=== PATIENT | female | born 1945 | race Caucasian/White ===

== ENCOUNTER → 2019-12-05 | Outpatient (CLI) | payer BC, SELFPAY ==
[2019-12-07 09:08] LABS: SJOGREN'S Anti-SS-A test < 0.2 AI (0.0-0.9); SJOGREN'S Anti-SS-B test < 0.2 AI (0.0-0.9)
[2019-12-07 10:54] LABS: Anti-Nuclear Antibody Test Negative (.)
== END | disposition home or self-care (01) ==
LOC: LAB 09:36
PROVIDERS: Referring Provider Otolaryngology; Visit Provider Otolaryngology
DX: K11.7 Disturbances of salivary secretion (principal)
CPT/HCPCS: 36415; 86038; 86235; 86431

== ENCOUNTER → 2020-02-27 | Outpatient (CLI) | payer BC, SELFPAY | END | disposition home or self-care (01) | LOC: LABSPEC 15:44 | PROVIDERS: Visit Provider Otolaryngology | DX: J02.9 Acute pharyngitis, unspecified (principal) | CPT/HCPCS: 87070; 87077; 87186 ==

== ENCOUNTER → 2020-04-18 08:35 | Outpatient (CLI) | payer BC, SELFPAY ==
--- NOTE | 2020-04-18 08:42 | EKG12_ITS ---
Test Reason : PRE OP Blood Pressure : / mmHG Vent. Rate : 067 BPM Atrial Rate : 067 BPM P-R Int : 144 ms QRS Dur : 068 ms QT Int : 370 ms P-R-T Axes : 057 069 067 degrees QTc Int : 390 ms Normal sinus rhythm Normal ECG Confirmed by ORLANDO ALDRICH, HUNTER ([id number]), editor greeting card MICHAEL ARMAS ([id number]) on 04/24/2020 8:25:39 AM Referred By: Poli Curran Confirmed By:HUNTER PERRY MD
[2020-04-18 10:13] LABS: Hematocrit 42.7 % (37-47); Hemoglobin 13.5 g/dL (12.0-15.0); Mean Corp Hgb Conc 31.6 g/dL (32-36); Mean Corpuscular Hgb 28.2 pg (27.0-32.0); Mean Corpuscular Volume 89.3 fL (81-99); Mean Platelet Vol. 11.8 fl (6.2-12.0); Platelet Count 229 K/mm3 (150-450); RBC Distribution Width CV 13.5 % (11.6-14.6); RBC Distribution Width SD 43.9 fl (35.1-43.9); Red Blood Count 4.78 M/mm3 (4.2-5.4); White Blood Count 5.2 K/mm3 (4.4-11.0)
[2020-04-18 11:01] LABS: Anion Gap 3 (5-15); BUN 16 mg/dL (7-18); BUN/Creat Ratio 14.5 RATIO (10-20); Calcium,Total 10.4 mg/dL (8.5-10.1); Chloride 109 mmol/L (98-107); EST Glomerular Filtration Rate 52 mL/min (>60); Est Glom Filt Rate - Afr Amer 63 mL/min (>60); Glucose 83 mg/dL (74-106); Potassium 4.2 mmol/L (3.5-5.1); Sodium Level 143 mmol/L (136-145)
== END ==
PROVIDERS: Referring Provider Otolaryngology; Visit Provider Otolaryngology
DX: Z01.818 Encounter for other preprocedural examination (principal)
CPT/HCPCS: 36415; 80048; 85027; 93005

== ENCOUNTER → 2020-04-24 | Outpatient (CLI) | payer BC, SELFPAY | END | disposition home or self-care (01) | LOC: LABSPEC 10:48 | PROVIDERS: Referring Provider Otolaryngology; Visit Provider Otolaryngology | DX: Z11.59 Encounter for screening for other viral diseases (principal) | CPT/HCPCS: 87635; C9803; U0003 ==

== ENCOUNTER → 2020-04-29 | Outpatient (CLI) | payer BC, SELFPAY ==
--- NOTE | 2020-04-29 10:05 | TISS_PTH ---
PATIENT: HERB RAMIREZ LOC: [facility] U#:[id number] AGE/SX: 75/F ROOM: RE04/29/[address]: Dr. Poli Curran MD : 1945 BED: DIS: 04/29/2020 SPEC #: [id number] RECD: 04/29/20 10:50 STATUS: NEVA REJamil #: [id number] KIET: 04/29/20 10:[address]: Poli Curran DEPT: SURGICAL PATHOLOGY RECD BY: Lady Tse ENTERED: 04/29/20 11:55 SP TYPE: Tissue Bx CARLOS ENRIQUE DR: Dr. Ashley Gerardo, DO [facility] Tissues: A - Uvula palatina B - Salivary gland, NOS Procedures: Surgery Specimen Level IV HEADER OPERATION: Salivary gland biopsy, excision of uvular papilloma PRE-OP DIAGNOSIS: Uvular neoplasm, Sjorgen's disease TISSUE SUBMITTED: A - Uvula neoplasm, B - Minor salivary gland (evaluate for Sjorgen's disease) in saline only MICROSCOPIC DIAGNOSIS A. 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 B. Minor salivary gland, biopsy: Minor salivary gland tissue with mild chronic inflammation. See comment. SJ:elias 04/30/20 COMMENT B. Extensive lymphoid infiltrate with germinal center formation, significant interstitial fibrosis or acinar atrophy suggestive of Sjorgen's disease are not seen. Correlation with clinical, laboratory studies and appropriate follow up are necessary. MICROSCOPIC DESCRIPTION Slides are reviewed. GROSS DESCRIPTION A - Received in fixative is one container labeled with the patient's name and designated uvula neoplasm. The specimen consists of one irregular fragment of santamaria soft tissue that measures 0.5 x 0.5 x 0.2 cm. Two minute fragments of santamaria soft tissue are also noted measuring 0.2 x 0.1 x 0.1 cm. The entire specimen is submitted in one cassette. B - Received in saline and then postfixed in formalin is one container labeled with the patient's name and designated minor salivary gland in saline only. The specimen consists of a piece of santamaria soft tissue measuring 0.5 x 0.5 x 0.2 cm. Also present in the container are two smaller pieces of santamaria soft tissue measuring in aggregate 0.3 x 0.2 x 0.1 cm. The entire specimen is submitted in one cassette. / SJ:rg 04/29/20 TC:3 CPT: 13585 x2
== END | disposition home or self-care (01) ==
LOC: LABSPEC 11:33
PROVIDERS: Visit Provider Otolaryngology
DX: M35.00 Sjogren syndrome, unspecified (principal); D49.0 Neoplasm of unspecified behavior of digestive system
CPT/HCPCS: 88304; 88305

== ENCOUNTER 2021-08-01 11:17 | Outpatient (CLI) | payer BC, SELFPAY | END 2021-08-01 23:59 | disposition home or self-care (01) | LOC: LABSPEC 11:20 | PROVIDERS: Referring Provider Otolaryngology Otolaryngology/Facial Plastic Surgery; Visit Provider Otolaryngology Otolaryngology/Facial Plastic Surgery | DX: B37.0 Candidal stomatitis (principal) | CPT/HCPCS: 87070; 87077; 87186 ==

== ENCOUNTER 2021-08-14 09:02 | Outpatient (CLI) | payer BC, SELFPAY | END 2021-08-14 23:59 | disposition home or self-care (01) | LOC: LABSPEC 09:03 | PROVIDERS: Referring Provider Otolaryngology; Visit Provider Otolaryngology | DX: R05.9 Cough, unspecified (principal) | CPT/HCPCS: 87070; 87077; 87186; 87205 ==

== ENCOUNTER 2022-08-12 05:32 | Day surgery (SDC) | payer BC, SELFPAY ==
[2022-08-12] VITALS (7 sets, daily range): BP systolic 117–171; BP diastolic 54–103; PULSE 74–80; RESP 16–18; TEMP 36.3–36.7; O2SAT 93–98; BMI 28.0
[2022-08-12] MEDS: Lactated Ringers 1,000 ML 15 ML IV (06:08)
--- NOTE | 2022-08-12 06:30 | EGD_PTH ---
PATIENT: HERB RAMIREZ LOC: EN U#:[id number] AGE/SX: 77/F ROOM: RE08/12/[address]: Dr. Kenneth Contreras DO : 1945 BED: DIS: 08/12/2022 SPEC #: [id number] RECD: 08/12/22 10:23 STATUS: NEVA REJamil #: [id number] KIET: 08/12/22 06:[address]: Kenneth Contreras DEPT: SURGICAL PATHOLOGY RECD BY: Lady Tse ENTERED: 08/12/22 11:36 SP TYPE: EGD BIOPSY RASHIDA DR: Dr. Ashley Gerardo DO Tissues: Esophagus, NOS Procedures: Surgery Specimen Level IV HEADER OPERATION: EGD ([facility] [place]) with biopsy and dilatation PRE-OP DIAGNOSIS: GERD, dysphagia TISSUE SUBMITTED: Random esophagus biopsy MICROSCOPIC DIAGNOSIS Esophagus, random biopsy: No pathologic change. AM:elias 08/13/2022 MICROSCOPIC DESCRIPTION Slides are reviewed. GROSS DESCRIPTION Received in fixative is one container labeled with the patient's name and designated random esophagus biopsy. The specimen consists of two irregular fragments of light santamaria soft tissue that in aggregate measure 1.0 x 0.5 x 0.1 cm. The specimen is totally submitted in one cassette. / AM:elias 08/12/2022 TC:5 CPT: 45699
--- NOTE | 2022-08-12 06:33 | PCM.HP.BLA ---
History and Physical Date of Admission: 08/12/22 77 F who presents to the office today to establish with GI for difficulty swallowing. Concern that food will get stuck in esophagus. Hx of esophageal strictures requiring dilation multiple times over the years, most recent was 2014. Takes omeprazole 20 mg BID, used to take 40 mg BID. Some heartburn lately which is unusual for her. Has modified diet--soft or pureed foods, eats slowly. Has difficulty with meat especially. No hx of Pink's. No nausea, vomiting, abdominal pain. No bowels concerns; denies diarrhea, constipation, melena, hematochezia. Very dry mouth x 3 yrs. Didn't improve with d/c allergy medication. 04/[address] Curran did biopsy of salivary gland which was negative, and he referred her to [facility] arthritis clinic, had labs done there, negative for Sjogren's. She has osteopenia, followed by primary care, takes vitamin D July 2016 colonoscopy normal, told could repeat in 10 yrs ROS Const Constitutional: Positive for weight change; No fatigue ENT ENT: Positive for difficulty swallowing Gastro GI: Positive for heartburn and difficulty swallowing; No abdominal pain, belching, bloating, change in bowel habits, change in stool character, coffee ground emesis, constipation, cramping, diarrhea, feeling full early, excessive flatus, incontinent of stools, Vomiting blood/hematemesis, Blood in stool, loose stools, Black,tarry stools, nausea/dyspepsia, pain with swallowing, vomiting or other Musc Musculoskeletal: Positive for joint pain, back pain, stiffness and Arthritis Skin Skin: No yellowing of the eye or itchy eyes Psych Psychiatric: No anxiety and No depression Endo Endocrine: Positive for weight change; No fatigue Aller/Imm Allergy/Immunologic: No itchy eyes Jadon/Lymp Hematologic/Lymphatic: Positive for easy bruising; No easy bleeding Exam Const General: cooperative and comfortable Nutritional Appearance: average body habitus Orientation: alert, awake and oriented x3 Neck Neck: normal visual inspection Resp Effort & Inspection: normal respiratory effort GI Inspection: normal to inspection Palpation: soft, no hepatosplenomegaly, no masses and nontender Quality Reporting Tobacco Screening ([facility] 138) Smoking Status: Former smoker Assessment and Plan Assessment and Plan (1) GERD (gastroesophageal reflux disease): ?Status:?Chronic ?Plan: She would like to continue current dose of omeprazole 20 mg bid Schedule EGD to eval for esophageal stricture, esophagitis, Pink's, hiatal hernia; f/u in office 2 wks later (2) Dysphagia: ?Status:?Chronic ?Plan: as above I have examined the patient and the H&P has been reviewed. There are no clinical changes since date of exam.
--- NOTE | 2022-08-12 07:08 | OP.EGD_ITS ---
Patient Name: Regina Ryan Procedure Date: 08/12/2022 6:18 AM Date of : 1945 Age: 77 Procedure: Upper GI endoscopy Indications: Dysphagia Providers: Kenneth Contreras DO Referring MD: Kenneth Contreras DO Medicines: Monitored Anesthesia Care Patient Profile: This is a 77 year old female. Refer to note in patient chart for documentation of history and physical. Patient has symptoms of chronic dysphagia, chronic heartburn and chronic nausea. Complications: No immediate complications. Procedure: Pre-Anesthesia Assessment: - Prior to the procedure, a History and Physical was performed, and patient medications and allergies were reviewed. The risks and benefits of the procedure and the sedation options and risks were discussed with the patient. All questions were answered and informed consent was obtained. Patient identification and proposed procedure were verified by the physician. Mental Status Examination: alert and oriented. Airway Examination: normal oropharyngeal airway and neck mobility. Respiratory Examination: clear to auscultation. CV Examination: normal. Prophylactic Antibiotics: The patient does not require prophylactic antibiotics. Prior Anticoagulants: The patient has taken no previous anticoagulant or antiplatelet agents. After reviewing the risks and benefits, the patient was deemed in satisfactory condition to undergo the procedure. The anesthesia plan was to use monitored anesthesia care (MAC). Immediately prior to administration of medications, the patient was re-assessed for adequacy to receive sedatives. The heart rate, respiratory rate, oxygen saturations, blood pressure, adequacy of pulmonary ventilation, and response to care were monitored throughout the procedure. The physical status of the patient was re-assessed after the procedure. After obtaining informed consent, the endoscope was passed under direct vision. Throughout the procedure, the patient's blood pressure, pulse, and oxygen saturations were monitored continuously. The Endoscope was introduced through the mouth, and advanced to the second part of duodenum. The upper GI endoscopy was accomplished without difficulty. The patient tolerated the procedure well. Scope In: 6:39:30 AM Scope Out: 6:48:47 AM Total Procedure Duration Time 0 hours 9 minutes 17 seconds Findings: There appeared to be a small polyp or small dilated arytenoid vein near the right vocal cord. Mucosal changes including feline appearance, small-caliber esophagus and crepe paper esophagus were found in the upper third of the esophagus. Biopsies were obtained from the proximal and distal esophagus with cold forceps for histology of suspected eosinophilic esophagitis. Verification of patient identification for the specimen was done. Estimated blood loss was minimal. A moderate Schatzki ring was found in the lower third of the esophagus. A guidewire was placed and the scope was withdrawn. Dilation was performed with a Savary dilator with no resistance at 60 Fr. The dilation site was examined and showed moderate improvement in luminal narrowing. Estimated blood loss was minimal. Abnormal motility was noted in the lower third of the esophagus. The cricopharyngeus was abnormal. There is a decrease in motility of the esophageal body. The distal esophagus/lower esophageal sphincter is spastic, but gives up passage to the endoscope. Tertiary peristaltic waves are noted. Multiple 3 mm semi-sessile polyps with no bleeding and no stigmata of recent bleeding were found in the entire examined stomach. The duodenal bulb was normal. Impression: - Esophageal mucosal changes consistent with eosinophilic esophagitis. Biopsied. - Moderate Schatzki ring. Dilated. - Abnormal esophageal motility, suspicious for achalasia. - Multiple gastric polyps. - Normal duodenal bulb. Recommendation: - Discharge patient to home. - Resume previous diet. - Continue present medications. - Await pathology results. - ENT evaluation - Esophageal Manometry - Food allergy testing Procedure Code(s): --- Professional --- 12158, Esophagogastroduodenoscopy, flexible, transoral; with insertion of guide wire followed by passage of dilator(s) through esophagus over guide wire 17651, 59,51, Esophagogastroduodenoscopy, flexible, transoral; with biopsy, single or multiple CPT copyright 2017 [employer]. All rights reserved. The codes documented in this report are preliminary and upon coagulating operator review may be revised to meet current compliance requirements. Kenneth Contreras DO 08/12/2022 7:07:42 AM This report has been signed electronically. Number of Addenda: 0 Note Initiated On: 08/12/2022 6:18 AM
--- NOTE | 2022-08-12 07:08 | OP.CCLET_ITS ---
08/12/2022 Ashley Gerardo Re : Upper GI endoscopy procedure for Regina Ryan Dear Akin This procedure was performed on August. My impressions and recommendations are as follows: Impressions : - Esophageal mucosal changes consistent with eosinophilic esophagitis. Biopsied. - Moderate Schatzki ring. Dilated. - Abnormal esophageal motility, suspicious for achalasia. - Multiple gastric polyps. - Normal duodenal bulb. Recommendations : - Discharge patient to home. - Resume previous diet. - Continue present medications. - Await pathology results. - ENT evaluation - Esophageal Manometry - Food allergy testing My findings are described in the full procedure note, which is enclosed. If I can be of further assistance, please feel free to contact me at . Sincerely, Kenneth Contreras, 08/12/2022 7:07:42 AM This report has been signed electronically.
== END 2022-08-12 07:35 | disposition home or self-care (01) ==
LOC: EN 05:41 → AC 05:43
PROVIDERS: Visit Provider Internal Medicine Gastroenterology
PROC: 0DJ08ZZ Inspection of Upper Intestinal Tract, Via Natural or Artificial Opening Endoscopic (ICD-10-PCS; CPT 43235; principal; 2022-08-12 06:25)
DX: K22.2 Esophageal obstruction (principal); K31.7 Polyp of stomach and duodenum; Z87.891 Personal history of nicotine dependence; K21.9 Gastro-esophageal reflux disease without esophagitis; Z79.899 Other long term (current) drug therapy; E78.5 Hyperlipidemia, unspecified; N18.9 Chronic kidney disease, unspecified
CPT/HCPCS: 43248; 43239; 88305; J7120; C1769; J2405

== ENCOUNTER → 2022-08-30 | Outpatient (CLI) | payer BC, SELFPAY ==
[2022-09-03 11:09] LABS: Beef 0.21 kU/L (Class 0/I); Chocolate <0.10 kU/L (Class 0); Corn 0.58 kU/L (Class II); Egg, Whole 1.28 kU/L (Class II); Milk (Cow) 4.32 kU/L (Class IV); Pork <0.10 kU/L (Class 0); Soybean 0.45 kU/L (Class I); Wheat 0.72 kU/L (Class II)
== END | disposition home or self-care (01) ==
LOC: LAB 10:30
PROVIDERS: Referring Provider Nurse Practitioner Adult Health; Visit Provider Nurse Practitioner Adult Health
DX: R13.10 Dysphagia, unspecified (principal)
CPT/HCPCS: 36415; 86003; 86005

== ENCOUNTER 2022-09-10 08:56 | Day surgery (SDC) | payer BC, SELFPAY ==
[2022-09-10 09:18] VITALS: BP 151/50; PULSE 72; RESP 16; TEMP 36.1; O2SAT 97
== END 2022-09-10 23:59 | disposition home or self-care (01) ==
PROVIDERS: Visit Provider Internal Medicine Gastroenterology
PROC: F00ZJWZ Instrumental Swallowing and Oral Function Assessment using Swallowing Equipment (ICD-10-PCS; CPT 43235; principal; 2022-09-10 08:55)
DX: R10.13 Epigastric pain (principal); K22.4 Dyskinesia of esophagus
CPT/HCPCS: 91010; 99152; 99153